=== PATIENT | female | born 1995 | race Caucasian/White ===

== ENCOUNTER → 2019-06-08 | Outpatient (REF) | payer OTHER | LOC: M SFHCLERA 14:25 | PROVIDERS: ATTEND Nurse Practitioner Family | DX: J02.9 Acute pharyngitis, unspecified (principal) ==

== ENCOUNTER → 2019-06-08 | Outpatient (CLI) | payer OTHER ==
--- NOTE | 2019-06-08 15:02 | REP ---
Chest x-ray: Two views. History: Wheezing . Comparison study: No comparison study . Findings: The lungs are well inflated and free of infiltrate. The pleural angles are sharp. The heart size is normal. Pulmonary vasculature is not increased. No significant bony abnormality is seen. Impression: Negative chest x-ray. Electronically Signed by Filemon Wade MD 06/08/2019 02:53 P
== END ==
LOC: M LRY 14:38
PROVIDERS: ATTEND Nurse Practitioner Family
DX: R06.2 Wheezing (principal)
CPT/HCPCS: 71046; 87880; 94640; G0463

== ENCOUNTER 2019-07-28 19:41 | Emergency (ER) | payer OTHER ==
[~2019-07-28] VITALS: Ht 154.9 cm; Wt 85.9 kg
[2019-07-28 19:42] VITALS: BP 138/94
[2019-07-28] MEDS: IPRATROPIUM 0.5MG/ALBUTEROL 2.5MG INH SOL UD 3ML (DUONEB)(J7620) NEB PRN ×3 (20:05→21:56)
[2019-07-28 20:28] LABS: VENOUS BASE EXCESS -0.8 (-2.0-2.0); VENOUS HCO3 27.4 MEQ/L (23.0-27.0); VENOUS O2 SATURATION 74.8 % (60.0-80.0); VENOUS PARTIAL PRESSURE CO2 59.4 mmHg (38.0-50.0); VENOUS PARTIAL PRESSURE O2 41.9 mmHg (30.0-50.0); VENOUS PH 7.282 UNITS (7.330-7.430); VENOUS STANDARD HCO3 23.2 MEQ/L; VENOUS TOTAL CO2 29.2 MEQ/L (24.0-28.0)
[2019-07-28 20:30] LABS: BASO # 0.1 10^3/uL (0.0-0.2); BASO % 0.7 % (0.0-1.0); EOS # 0.4 10^3/uL (0.0-0.5); EOS % 3.1 % (0.0-3.0); HEMOGLOBIN 14.8 g/dl (12.0-15.5); LYMPH % 22.5 % (24.0-44.0); MEAN CORPUSCULAR HEMOGLOBIN 26.8 pg (27.0-33.0); MEAN CORPUSCULAR HGB CONC 32.2 g/dl (32.0-36.5); MEAN CORPUSCULAR VOLUME 83.3 fl (80.0-96.0); MONO % 7.7 % (0.0-5.0); NEUTROPHILS # 8.8 10^3/uL (1.5-8.5); NEUTROPHILS % 65.6 % (36.0-66.0); PLATELET COUNT, AUTOMATED 222 10^3/uL (150-450); RED BLOOD COUNT 5.52 10^6/uL (4.00-5.40); WHITE BLOOD COUNT 13.5 10^3/uL (4.0-10.0)
[2019-07-28] MEDS ORDERED: KETOROLAC 30 MG/ML VIAL (J1885) IV ONE (21:15)
[2019-07-28] MEDS ORDERED: GI COCKTAIL 50ML BTL(HYOSCYAMINE/MAALOX/LIDOCAINE VISCOUS)(1:3:1) PO ONE (21:15)
[2019-07-28] MEDS ORDERED: PSEUDOEPHEDRINE 30 MG TAB PO STA (21:15)
[2019-07-28] MEDS ORDERED: methylPREDNISolone INJ 125 MG/2 ML VIAL (J2930) IV ONE (21:15)
[2019-07-28] MEDS ORDERED: NS 1,000 ML IV ONE (21:15)
[2019-07-28] MEDS ORDERED: AZITHROMYCIN 250 MG TAB PO ONE (21:15)
[2019-07-28 21:57] LABS: INFLUENZA A AMPLIFICATION NEGATIVE (NEGATIVE); INFLUENZA B AMPLIFICATION NEGATIVE (NEGATIVE)
[2019-07-28] MEDS ORDERED: AZIT-12 PO (22:19)
[2019-07-28] MEDS ORDERED: PSEU120T19 PO (22:19)
[2019-07-28] MEDS ORDERED: PRED20TA PO (22:19)
[2019-07-28] MEDS ORDERED: AERO1MIS2 XX (22:19)
[2019-07-28] MEDS ORDERED: ALBU83IN NEB (22:19)
[2019-07-28] MEDS ORDERED: ALBUTEROL 90 MCG/ACT 8GM HFA INHALER INH ONE (22:30)
--- NOTE | 2019-07-29 08:20 | REP ---
Chest x-ray: Two views. History: Dyspnea and cough . Comparison study: June 08, 2019 . Findings: The lungs are well inflated and free of infiltrate. The pleural angles are sharp. The heart size is normal. Pulmonary vasculature is not increased. No significant bony abnormality is seen. Impression: Negative chest x-ray. Electronically Signed by Filemon Wade MD 07/29/2019 08:12 A
== END 2019-07-28 22:47 | disposition home or self-care (01) ==
LOC: M ED 19:41
DX: J45.901 Unspecified asthma with (acute) exacerbation (principal); R09.81 Nasal congestion
CPT/HCPCS: 71046; 82803; 84702; 85025; 87502; 94640; 96361; 96374; 96375; 99284; J1885; J2930